=== PATIENT | male | born 1975 | race African-American/Black ===

== ENCOUNTER 2020-07-11 03:04 | Inpatient (IN) | payer BC, OTHER ==
[2020-07-11 04:08] LABS: ABSOLUTE LYMPHOCYTES (AUTO) 0.5 10^3/uL (0.5-4.7); ABSOLUTE MONOCYTES (AUTO) 0.4 10^3/uL (0.1-1.4); ABSOLUTE NEUT (AUTO) 8.7 10^3/uL (1.7-8.2); BASOPHILS % (AUTO) 0.2 % (0-2); HEMOGLOBIN 15.3 g/dL (13.5-17.0); LYMPHOCYTES % (AUTO) 5.6 % (13-45); MEAN CORPUSCULAR HEMOGLOBIN 29.2 pg (27.0-33.4); MEAN CORPUSCULAR HGB CONC 34.7 g/dL (32.0-36.0); MEAN CORPUSCULAR VOLUME 84 fl (80-97); MONOCYTES % (AUTO) 4.1 % (3-13); PLATELET COUNT 189 10^3/uL (150-450); RED BLOOD COUNT 5.23 10^6/uL (4.35-5.55); RED CELL DISTRIBUTION WIDTH 13.7 % (11.5-14.0); SEGMENTED NEUTROPHILS % (AUTO) 90.1 % (42-78); TOTAL CELLS COUNTED % (AUTO) 100 %; WHITE BLOOD COUNT 9.6 10^3/uL (4.0-10.5)
--- NOTE | 2020-07-11 04:19 | ER Document Report ---
ED General - General Chief Complaint: Shortness Of Breath Stated Complaint: CHEST PAIN,SHORTNESS OF BREATH Time Seen by Provider: 07/11/20 03:49 Information source: Patient - HPI Notes: Patient is a 44 y/o male who is +COVID-19 and presents with worsening shortness of breath. Patient states his symptoms began 1.5 weeks ago and he tested positive for COVID-19 two days ago. Patient was prescribed azithromycin and cefdinir by his PCP. He endorses worsening SOB that began tonight and has been using his albuterol inhaler more frequently. Patient reports non-productive cough, fever, chest pain, nausea, abdominal pain, diarrhea, and nasal congestion. He denies vomiting and sore throat. Patient has a hx of HTN. - Related Data Allergies/Adverse Reactions: No Known Allergies Allergy (Unverified 07/11/20 03:42) Past Medical History - General Information source: Patient - Social History Smoking Status: Never Smoker Frequency of alcohol use: Occasional Drug Abuse: None Family History: Reviewed & Not Pertinent Patient has homicidal ideation: No Review of Systems - Review of Systems Constitutional: See HPI EENT: See HPI Cardiovascular: See HPI Respiratory: See HPI Gastrointestinal: See HPI Genitourinary: No symptoms reported Male Genitourinary: No symptoms reported Musculoskeletal: No symptoms reported Skin: No symptoms reported Hematologic/Lymphatic: No symptoms reported Neurological/Psychological: No symptoms reported Physical Exam - Vital signs Vitals: Temp Pulse Resp BP Pulse Ox 100.0 F 99 16 140/85 H 90 L 07/11/20 03:19 07/11/20 03:19 07/11/20 03:19 07/11/20 03:19 07/11/20 03:19 - Notes Notes: PHYSICAL EXAMINATION: VITALS: Vitals reviewed and within normal limits. GENERAL: Obese, male in mild distress with labored respirations with exertion. HEAD: Atraumatic, normocephalic. EYES: Pupils equal round and reactive to light, extraocular movements intact, s clera anicteric, conjunctiva are normal. ENT: nares patent, oropharynx clear without exudates. Moist mucous membranes. NECK: Normal range of motion, supple without lymphadenopathy. LUNGS: Breathing becomes labored with any exertion. Rales noted to bilateral bases and right middle lobe. No accessory muscle use, no intercostal retractions. HEART: Regular rate and rhythm without murmurs. ABDOMEN: Soft, nontender, normoactive bowel sounds. No guarding, no rebound. No masses appreciated. EXTREMITIES: Normal range of motion, no pitting or edema. No cyanosis. NEUROLOGICAL: No focal neurological deficits. Moves all extremities spontaneously and on command. PSYCH: Normal mood, normal affect. SKIN: Warm, Dry, normal turgor, no rashes or lesions noted. Course - Re-evaluation Re-evalutation: Patient is a 44 y/o male, COVID-19 positive who presents for worsening SOB. Patient hypoxic on arrival with O2 Sat in the low 90s. Improved O2 saturations of 100% when placed on O2 via NC. Patient's temp 100 F upon arrival. On exam, labored respirations with exertion and rales noted bilaterally at bases and mid dle lobe. Chest x-ray shows pneumonia of the left lung base and right perihilar region. WBC normal at 9.6, and lactic normal at 1.1. VBG normal and troponin negative. Rocephin, azithromycin and dexamethasone ordered. Patient discussed with Dr. Babcock, hospitalist and he agrees to accept the patient for full admission to the [facility] COVID+ unit. - Vital Signs Vital signs: Temp Pulse Resp BP Pulse Ox 101.4 F H 99 36 H 167/81 H 97 07/11/20 06:52 07/11/20 03:19 07/11/20 06:01 07/11/20 06:01 07/11/20 06:01 - Laboratory Result Diagrams: 07/11/20 03:53 07/11/20 03:53 Laboratory results interpreted by me: 07/11/20 07/11/20 07/11/20 03:53 03:53 04:25 Lymph % (Auto) 5.6 L Absolute Neuts (auto) 8.7 H Seg Neutrophils % 90.1 H Glucose 124 H Calcium 8.3 L Urine Protein 100 H Urine Blood MODERATE H - Diagnostic Test Radiology reviewed: Image reviewed, Reports reviewed Radiology results interpreted by me: Chest X-Ray 07/11/20 03:44 IMPRESSION: Airspace opacities consistent with pneumonia as above copyright 2010 [employer]- All Rights Reserved - EKG Interpretation by Me Additional EKG results interpreted by me: Sinus rhythm with a rate of 97. QTc 432. Normal axis. No T wave inversion or ST segment changes in consecutive leads. Discharge - Discharge Clinical Impression: Shortness of breath, COVID-19 Pneumonia Qualifiers: Pneumonia type: due to unspecified organism Laterality: bilateral Lung location: unspecified part of lung Qualified Code(s): J18.9 - Pneumonia, unspecified organism Condition: Stable Disposition: ADMITTED INPATIENT Admitting Provider: Yoko (Hospitalist) Unit Admitted: IMCU - COVID+
[2020-07-11 04:24] LABS: VENOUS BLOOD BASE EXCESS 0.6 mmol/L; VENOUS BLOOD HCO3 25.8 mmol/L (20-32); VENOUS BLOOD PCO2 43.3 mmHg (35-63); VENOUS BLOOD PH 7.39 (7.30-7.42)
[2020-07-11 04:31] LABS: ALBUMIN 3.9 g/dL (3.5-5.0); ALKALINE PHOSPHATASE 41 U/L (38-126); ANION GAP 12 (5-19); ASPARTATE AMINO TRANSFERASE 35 U/L (17-59); BILIRUBIN,DIRECT 0.3 mg/dL (0.0-0.4); BILIRUBIN,TOTAL 1.1 mg/dL (0.2-1.3); BLOOD UREA NITROGEN 13 mg/dL (7-20); CALCIUM 8.3 mg/dL (8.4-10.2); CARBON DIOXIDE 26 mmol/L (22-30); CHLORIDE 101 mmol/L (98-107); GLUCOSE 124 mg/dL (75-110); POTASSIUM 3.8 mmol/L (3.6-5.0); TOTAL PROTEIN 6.9 g/dL (6.3-8.2)
[2020-07-11 04:53] LABS: APPEARANCE,URINE CLEAR; BILIRUBIN,URINE NEGATIVE (NEGATIVE); COLOR,URINE YELLOW; GLUCOSE, URINE NEGATIVE (NEGATIVE); KETONES,URINE NEGATIVE (NEGATIVE); LEUKOCYTE ESTERASE,URINE NEGATIVE (NEGATIVE); NITRITE,URINE NEGATIVE (NEGATIVE); PROTEIN,URINE 100 mg/dL (NEGATIVE); URINE SPECIFIC GRAVITY 1.017; UROBILINOGEN,URINE NEGATIVE mg/dL (<2.0)
--- NOTE | 2020-07-11 05:03 | RADIOLOGY REPORT (SQ) ---
EXAM DESCRIPTION: XR CHEST 1 VIEW COMPLETED DATE/TME: 07/11/2020 03:44 CLINICAL HISTORY: 44 years, Male, shortness of breath, chest pain COMPARISON: None. NUMBER OF VIEWS: 1 TECHNIQUE: Portable chest LIMITATIONS: None. FINDINGS: Heart size is normal. Airspace opacities of the left lung base and right perihilar region. No pneumothorax IMPRESSION: Airspace opacities consistent with pneumonia as above copyright 2010 [employer]- All Rights Reserved
[2020-07-11] MEDS ORDERED: AZITHROMYCIN INJ 500 MG VIAL IV ONE (05:57)
[2020-07-11] MEDS ORDERED: CEFTRIAXONE 1 GM/D5W RTU 1 GM/50 ML RTUPB IV ONE (05:58)
[2020-07-11] MEDS ORDERED: DEXAMETHASONE SOD PHOS INJ 10 MG/1 ML VIAL IV ONE (05:59)
[2020-07-11] MEDS ORDERED: ACETAMINOPHEN 325 MG TABLET PO ONE (07:12)
--- NOTE | 2020-07-11 07:20 | EKG REPORT ---
SEVERITY:- ABNORMAL ECG - SINUS RHYTHM LEFT ATRIAL ABNORMALITY : Confirmed by: Carmelina Peters 11-Jul-2020 07:19:23
[2020-07-11] MEDS ORDERED: ACETAMINOPHEN 325 MG TABLET PO PRN (08:19)
[2020-07-11] MEDS ORDERED: PROMETHAZINE HCL INJ 25 MG/1 ML VIAL IV PRN (08:19)
[2020-07-11 09:42] LABS: C-REACTIVE PROTEIN 239.7 mg/L (<10.0)
[2020-07-11] MEDS: DEXAMETHASONE SOD PHOSPHATE INJ 4 MG/1 ML VIAL IV SCH ×2 (10:53→21:31)
[2020-07-11] MEDS: DOCUSATE SODIUM 100 MG/10 ML UDC PO SCH (10:53)
[2020-07-11] MEDS: CHOLECALCIFEROL (D3) 400 UNIT TABLET PO SCH (10:54)
[2020-07-11] MEDS: ZINC SULFATE 220 MG CAPSULE PO SCH (10:54)
[2020-07-11] MEDS: AZITHROMYCIN 500 MG in DEXTROSE 5%-WATER 250 ML IV SCH (10:54)
[2020-07-11] MEDS: FAMOTIDINE 20 MG TABLET PO SCH ×2 (10:54→21:30)
[2020-07-11] MEDS: ASCORBIC ACID 500 MG TABLET PO SCH ×2 (10:54→18:16)
[2020-07-11] MEDS: ALBUTEROL SULFATE 0.083% NEB 2.5 MG/3 ML AMPUL NEB PRN ×2 (10:59→20:13)
[2020-07-11] MEDS ORDERED: HEPARIN SOD (PORCINE) 5,000 UNIT/ML 1 ML VIAL SUBCUT SCH (14:00)
[2020-07-11] MEDS ORDERED: PHARMACY COMMUNICATION ORDER MC NR (16:30)
[2020-07-11] MEDS ORDERED: REMDESIVIR (EUA) 200 MG in NORMAL SALINE 250 ML IV ONE (18:00)
--- NOTE | 2020-07-11 18:05 | PDOC H&P ---
History of Present Illness Admission Date/PCP: 07/11/20 06:47 Patient complains of: fever, dyspnea, COVID symptoms History of Present Illness: PAYTON RUBIO is a 44 year old male with a past medical history significant for hypertension, obesity, BRISSA who presents to the emergency department today with a complaint of 1-1/2 weeks of progressively worsening dyspnea, malaise, pleuritic chest pain with inspiration and cough, and fever. He reports that he has tested COVID positive at outside facility. Evaluation in the emergency department revealed Fever 101.4, tachypnea (RR37), hypoxia on room air, unremarkable CBC, elevated d-dimer, normal VBG, unremarkable chemistry, CRP 239, benign urinalysis. Chest x-ray demonstrated multifocal pneumonia. He was provided IV azithromycin, Rocephin, dexamethasone, and referred to the hospital service for further evaluation management of the above-stated complaints and findings. Past Medical History Cardiac Medical History: Reports: Hypertension Pulmonary Medical History: Reports: Other - BRISSA EENT Medical History: Reports: None Neurological Medical History: Reports: None Endocrine Medical History: Reports: Obesity Renal/ Medical History: Reports: None Malignancy Medical History: Reports: None GI Medical History: Reports: None Musculoskeltal Medical History: Reports: None Skin Medical History: Reports: None Psychiatric Medical History: Reports: None Traumatic Medical History: Reports: None Hematology: Reports: None Infectious Medical History: Reports: None Past Surgical History Past Surgical History: Reports: None Social History Information Source: Patient Lives with: Family Smoking Status: Never Smoker Electronic Cigarette use?: No Frequency of Alcohol Use: Rare Hx Recreational Drug Use: No Hx Prescription Drug Abuse: No - Advance Directive Resuscitation Status: Full Code Surrogate healthcare decision maker:: Patient's mother. Family History Family History: Reviewed & Not Pertinent Parental Family History Reviewed: Yes Children Family History Reviewed: Yes Sibling(s) Family History Reviewed.: Yes Medication/Allergy Allergies/Adverse Reactions: No Known Allergies Allergy (Unverified 07/11/20 03:42) Review of Systems Constitutional: PRESENT: chills, fever(s). ABSENT: headache(s), weight gain, weight loss Eyes: ABSENT: visual disturbances Ears: ABSENT: hearing changes Cardiovascular: PRESENT: other - pleuritic pain. ABSENT: chest pain, dyspnea on exertion, edema, orthropnea, palpitations Respiratory: PRESENT: cough, dyspnea. ABSENT: hemoptysis Gastrointestinal: ABSENT: abdominal pain, constipation, diarrhea, hematemesis, hematochezia, nausea, vomiting Genitourinary: ABSENT: dysuria, hematuria Musculoskeletal: ABSENT: joint swelling Integumentary: ABSENT: rash, wounds Neurological: ABSENT: abnormal gait, abnormal speech, confusion, dizziness, focal weakness, syncope Psychiatric: ABSENT: anxiety, depression, homidical ideation, suicidal ideation Endocrine: ABSENT: cold intolerance, heat intolerance, polydipsia, polyuria Hematologic/Lymphatic: ABSENT: easy bleeding, easy bruising Physical Exam Vital Signs: Temp Pulse Resp BP Pulse Ox 98.2 F 91 32 H 143/73 H 90 L 07/11/20 16:04 07/11/20 16:04 07/11/20 14:00 07/11/20 16:04 07/11/20 16:04 Intake & Output 07/10/20 07/11/20 07/12/20 06:59 06:59 06:59 Intake Total 50 Balance 50 Weight 124.6 kg General appearance: PRESENT: no acute distress, cooperative, morbidly obese, well-developed, well-nourished, other - acutely ill appearing Head exam: PRESENT: atraumatic, normocephalic Eye exam: PRESENT: conjunctiva pink, EOMI, PERRLA. ABSENT: scleral icterus Mouth exam: PRESENT: moist, tongue midline Respiratory exam: PRESENT: clear to auscultation glory, decreased breath sounds - throughout; shallow respirations, symmetrical, unlabored, other - supplemental O2 via NC. ABSENT: rales, rhonchi, wheezes Cardiovascular exam: PRESENT: RRR. ABSENT: diastolic murmur, rubs, systolic murmur Vascular exam: PRESENT: normal capillary refill Extremities exam: PRESENT: full ROM. ABSENT: calf tenderness, clubbing, pedal edema Musculoskeletal exam: PRESENT: ambulatory Neurological exam: PRESENT: alert, awake, oriented to person, oriented to place, oriented to time, oriented to situation, CN II-XII grossly intact. ABSENT: motor sensory deficit Psychiatric exam: PRESENT: appropriate affect, normal mood. ABSENT: homicidal ideation, suicidal ideation Skin exam: PRESENT: dry, intact, warm. ABSENT: cyanosis, rash Results Laboratory Results: 07/11/20 03:53 07/11/20 03:53 07/11/20 07/11/20 07/11/20 03:53 03:53 03:53 WBC 9.6 RBC 5.23 Hgb 15.3 Hct 44.0 MCV 84 MCH 29.2 MCHC 34.7 RDW 13.7 Plt Count 189 Seg Neutrophils % 90.1 H VBG pH VBG pCO2 VBG HCO3 VBG Base Excess Sodium 138.8 Potassium 3.8 Chloride 101 Carbon Dioxide 26 Anion Gap 12 BUN 13 Creatinine 1.22 Est GFR ( Amer) > 60 Glucose 124 H Lactic Acid 1.1 Calcium 8.3 L Ferritin Total Bilirubin 1.1 AST 35 Alkaline Phosphatase 41 C-Reactive Protein Total Protein 6.9 Albumin 3.9 Urine Color Urine Appearance Urine pH Ur Specific [place] Urine Protein Urine Glucose (UA) Urine Ketones Urine Blood Urine Nitrite Ur Leukocyte Esterase Urine WBC (Auto) Urine RBC (Auto) Blood Type Antibody Screen 07/11/20 07/11/20 07/11/20 03:53 04:25 08:05 WBC RBC Hgb Hct MCV MCH MCHC RDW Plt Count Seg Neutrophils % VBG pH 7.39 VBG pCO2 43.3 VBG HCO3 25.8 VBG Base Excess 0.6 Sodium Potassium Chloride Carbon Dioxide Anion Gap BUN Creatinine Est GFR ( Amer) Glucose Lactic Acid Calcium Ferritin 250.00 Total Bilirubin AST Alkaline Phosphatase C-Reactive Protein 239.7 H Total Protein Albumin Urine Color YELLOW Urine Appearance CLEAR Urine pH 6.0 Ur Specific [place] 1.017 Urine Protein 100 H Urine Glucose (UA) NEGATIVE Urine Ketones NEGATIVE Urine Blood MODERATE H Urine Nitrite NEGATIVE Ur Leukocyte Esterase NEGATIVE Urine WBC (Auto) 4 Urine RBC (Auto) 0 Blood Type Antibody Screen 07/11/20 15:20 WBC RBC Hgb Hct MCV MCH MCHC RDW Plt Count Seg Neutrophils % VBG pH VBG pCO2 VBG HCO3 VBG Base Excess Sodium Potassium Chloride Carbon Dioxide Anion Gap BUN Creatinine Est GFR ( Amer) Glucose Lactic Acid Calcium Ferritin Total Bilirubin AST Alkaline Phosphatase C-Reactive Protein Total Protein Albumin Urine Color Urine Appearance Urine pH Ur Specific [place] Urine Protein Urine Glucose (UA) Urine Ketones Urine Blood Urine Nitrite Ur Leukocyte Esterase Urine WBC (Auto) Urine RBC (Auto) Blood Type A POSITIVE Antibody Screen NEGATIVE 07/11/20 03:53 Troponin I 0.012 Impressions: Chest X-Ray 07/11/20 03:44 IMPRESSION: Airspace opacities consistent with pneumonia as above copyright 2011 [employer]- All Rights Reserved Assessment and Plan - Diagnosis (1) Pneumonia due to COVID-19 virus Is this a current diagnosis for this admission?: Yes Plan: COVID test positive (done at outside facility) D-dimer and CRP are elevated. Patient is admitted to the medical floor on continuous cardiac telemetry and pulse oximetry. Full dose Lovenox related elevated d-dimer. IV azithromycin IV Remdesivir Patient has declined convalescent serum Provide supplemental oxygen as needed maintain saturations greater than 89%. CPAP nightly and PRN As needed nebulizer treatments. Zinc, vitamin D, vitamin C, and melatonin supplementation. Analgesics and antipyretics prn Encourage pulmonary toilet. Isolation precautions. (2) Acute respiratory failure with hypoxia Is this a current diagnosis for this admission?: Yes Plan: Secondary to #1 Management as above. (3) Morbid obesity with BMI of 40.0-44.9, adult Is this a current diagnosis for this admission?: Yes Plan: BMI 40.6; concerning due to COVID (+) dx w/ acute resp failure in patient with BRISSA. Dietary discretion and lifestyle modification will be encouraged. Cardiac diet. (4) BRISSA (obstructive sleep apnea) Is this a current diagnosis for this admission?: Yes Plan: CPAP qHS and PRN - Time Time Spent with patient: 35 or more minutes Medications reviewed and adjusted accordingly: Yes Anticipated Discharge Disposition: Home, Self Care Anticipated Discharge Timeframe: >72 hrs - Inpatient Certification Based on my medical assessment, after consideration of the patient's comorbidities, presenting symptoms, or acuity I expect that the services needed warrant INPATIENT care.: Yes I certify that my determination is in accordance with my understanding of Medicare's requirements for reasonable and necessary INPATIENT services [42 CFR 412.3e].: Yes Medical Necessity: Need Close Monitoring Due to Risk of Patient Decompensation, Need For Continuous Telemetry Monitoring, Need for Nebulizer Therapy and Monitoring of Response
[2020-07-11] MEDS: NORMAL SALINE 1000 ML 1,000 ML IV PRN (18:18)
[2020-07-11] MEDS: ENOXAPARIN SODIUM INJ 150 MG/1 ML DISP.SYRIN SUBCUT SCH (21:30)
[2020-07-11] MEDS: MELATONIN 3 MG TABLET PO SCH (21:30)
[2020-07-12] MEDS: ALBUTEROL SULFATE 0.083% NEB 2.5 MG/3 ML AMPUL NEB PRN ×2 (05:18→18:40)
[2020-07-12] MEDS: NORMAL SALINE 1000 ML 1,000 ML IV PRN ×3 (05:21→19:54)
[2020-07-12 07:23] LABS: ABSOLUTE LYMPHOCYTES (AUTO) 0.7 10^3/uL (0.5-4.7); ABSOLUTE MONOCYTES (AUTO) 0.6 10^3/uL (0.1-1.4); ABSOLUTE NEUT (AUTO) 10.6 10^3/uL (1.7-8.2); BASOPHILS % (AUTO) 0.2 % (0-2); HEMATOCRIT 44.2 % (37.9-51.0); HEMOGLOBIN 15.5 g/dL (13.5-17.0); LYMPHOCYTES % (AUTO) 5.6 % (13-45); MEAN CORPUSCULAR HEMOGLOBIN 29.3 pg (27.0-33.4); MEAN CORPUSCULAR HGB CONC 35.1 g/dL (32.0-36.0); MEAN CORPUSCULAR VOLUME 83 fl (80-97); MONOCYTES % (AUTO) 4.8 % (3-13); PLATELET COUNT 209 10^3/uL (150-450); RED CELL DISTRIBUTION WIDTH 13.7 % (11.5-14.0); SEGMENTED NEUTROPHILS % (AUTO) 89.4 % (42-78); TOTAL CELLS COUNTED % (AUTO) 100 %; WHITE BLOOD COUNT 11.9 10^3/uL (4.0-10.5)
[2020-07-12 07:42] LABS: ANION GAP 13 (5-19); BLOOD UREA NITROGEN 15 mg/dL (7-20); CALCIUM 8.3 mg/dL (8.4-10.2); CARBON DIOXIDE 22 mmol/L (22-30); CHLORIDE 104 mmol/L (98-107); GLUCOSE 135 mg/dL (75-110); POTASSIUM 4.5 mmol/L (3.6-5.0)
[2020-07-12] MEDS: DOCUSATE SODIUM 100 MG/10 ML UDC PO SCH ×2 (09:52→10:45)
[2020-07-12] MEDS: LOSARTAN POTASSIUM 50 MG TABLET PO SCH (09:52)
[2020-07-12] MEDS: FAMOTIDINE 20 MG TABLET PO SCH ×2 (09:52→21:33)
[2020-07-12] MEDS: ASCORBIC ACID 500 MG TABLET PO SCH ×2 (09:52→17:14)
[2020-07-12] MEDS: CHOLECALCIFEROL (D3) 400 UNIT TABLET PO SCH (09:52)
[2020-07-12] MEDS: ZINC SULFATE 220 MG CAPSULE PO SCH (09:53)
[2020-07-12] MEDS: DEXAMETHASONE SOD PHOSPHATE INJ 4 MG/1 ML VIAL IV SCH ×2 (09:53→21:33)
[2020-07-12] MEDS ORDERED: (PENDING PHARMACY ID) (Olmesartan Medoxomil [Benicar] 40 MG) PO SCH (10:00)
[2020-07-12] MEDS ORDERED: AZITHROMYCIN 500 MG in DEXTROSE 5%-WATER 250 ML IV SCH (10:00)
[2020-07-12] MEDS: ENOXAPARIN SODIUM INJ 150 MG/1 ML DISP.SYRIN SUBCUT SCH ×3 (11:14→21:32)
[2020-07-12] MEDS: AZITHROMYCIN 500 MG in DEXTROSE 5%-WATER 250 ML IV SCH (11:14)
--- NOTE | 2020-07-12 15:48 | PDOC PROGRESS REPORT ---
Subjective Progress Note for:: 07/12/20 Subjective:: PAYTON RUBIO is a 44 year old male with a past medical history significant for hypertension, obesity, BRISSA who was admitted 07/11/2020 with COVID pneumonia. Patient was seen on afternoon rounds. He is found resting in bed, comfortably, on supplemental oxygen by nasal cannula at 6 L/min; maintaining oxygen saturations of 90 to 94%. Patient reports continued fatigue, dyspnea, occasional nonproductive cough. Reports that his pleuritic chest pain is improved today. However, he has developed diarrhea. T-max 99.2/24 hours, 101.4/48. He has no other questions or concerns at this time. No concerns per nursing. Reason For Visit: COVID (+), PNEUMONIA Physical Exam Vital Signs: Temp Pulse Resp BP Pulse Ox 97.9 F 84 20 142/71 H 92 07/12/20 11:30 07/12/20 14:00 07/12/20 11:30 07/12/20 11:30 07/12/20 11:30 Intake & Output 07/11/20 07/12/20 07/13/20 06:59 06:59 06:59 Intake Total 50 1250 730 Output Total 425 1040 Balance 50 825 -310 Weight 124.6 kg 127.2 kg General appearance: PRESENT: no acute distress, cooperative, morbidly obese, well-developed, well-nourished, other - Acutely ill-appearing Head exam: PRESENT: atraumatic, normocephalic Eye exam: PRESENT: conjunctiva pink, EOMI, PERRLA. ABSENT: scleral icterus Mouth exam: PRESENT: moist, tongue midline Respiratory exam: PRESENT: clear to auscultation glory, symmetrical, tachypnea - Shallow, other - Supplemental oxygen by nasal cannula. ABSENT: rales, rhonchi, wheezes Cardiovascular exam: PRESENT: RRR. ABSENT: diastolic murmur, rubs, systolic murmur Vascular exam: PRESENT: normal capillary refill Extremities exam: PRESENT: full ROM. ABSENT: calf tenderness, clubbing, pedal edema Musculoskeletal exam: PRESENT: ambulatory Neurological exam: PRESENT: alert, awake, oriented to person, oriented to place, oriented to time, oriented to situation, CN II-XII grossly intact. ABSENT: motor sensory deficit Psychiatric exam: PRESENT: appropriate affect, normal mood. ABSENT: homicidal ideation, suicidal ideation Skin exam: PRESENT: dry, intact, warm. ABSENT: cyanosis, rash Results Laboratory Results: 07/12/20 06:45 07/12/20 06:45 07/11/20 07/12/20 07/12/20 15:20 06:45 06:45 WBC 11.9 H RBC 5.30 Hgb 15.5 Hct 44.2 MCV 83 MCH 29.3 MCHC 35.1 RDW 13.7 Plt Count 209 Seg Neutrophils % 89.4 H Sodium 139.2 Potassium 4.5 Chloride 104 Carbon Dioxide 22 Anion Gap 13 BUN 15 Creatinine 0.83 Est GFR ( Amer) > 60 Glucose 135 H Calcium 8.3 L Blood Type A POSITIVE Antibody Screen NEGATIVE 07/12/20 04:58 Sputum Gram Stain - Final 07/12/20 04:58 Sputum Sputum Culture - Final 07/11/20 03:53 Troponin I 0.012 Impressions: Chest X-Ray 07/11/20 03:44 IMPRESSION: Airspace opacities consistent with pneumonia as above copyright 2011 [employer]- All Rights Reserved Assessment and Plan - Diagnosis (1) Pneumonia due to COVID-19 virus Is this a current diagnosis for this admission?: Yes Plan: Increased oxygen needs today; currently on 6lpm via [place] COVID test positive (done at outside facility) D-dimer and CRP are elevated. Patient is admitted to the medical floor on continuous cardiac telemetry and pulse oximetry. Full dose Lovenox related elevated d-dimer. IV azithromycin IV Remdesivir Patient has declined convalescent serum Provide supplemental oxygen as needed maintain saturations greater than 89%. CPAP nightly and PRN As needed nebulizer treatments. Zinc, vitamin D, vitamin C, and melatonin supplementation. Analgesics and antipyretics prn Encourage pulmonary toilet. Isolation precautions. Updated patient's mother (Danii [phone]), per his request, this afternoon. (2) Acute respiratory failure with hypoxia Is this a current diagnosis for this admission?: Yes Plan: Secondary to #1 Management as above. (3) Morbid obesity with BMI of 40.0-44.9, adult Is this a current diagnosis for this admission?: Yes Plan: BMI 40.6; concerning due to COVID (+) dx w/ acute resp failure in patient with BRISSA. Dietary discretion and lifestyle modification will be encouraged. Cardiac diet. (4) BRISSA (obstructive sleep apnea) Is this a current diagnosis for this admission?: Yes Plan: CPAP qHS and PRN - Time Time Spent with patient: 35 or more minutes Medications reviewed and adjusted accordingly: Yes Anticipated Discharge Disposition: Home, Self Care Anticipated Discharge Timeframe: >72 hrs
[2020-07-12] MEDS ORDERED: TEMAZEPAM 7.5 MG CAPSULE PO PRN (18:08)
[2020-07-12] MEDS: MELATONIN 3 MG TABLET PO SCH ×2 (21:33→21:44)
[2020-07-12] MEDS: REMDESIVIR (EUA) 100 MG in NORMAL SALINE 250 ML IV SCH (21:45)
[2020-07-13] MEDS: ONDANSETRON HCL INJ/PF 4 MG/2 ML SDV IV PRN ×3 (06:05→22:00)
[2020-07-13] MEDS: MORPHINE SULFATE 10 MG/ML INJ IV PRN ×3 (06:05→22:00)
[2020-07-13 06:44] LABS: HEMATOCRIT 43.7 % (37.9-51.0); HEMOGLOBIN 15.2 g/dL (13.5-17.0); MEAN CORPUSCULAR HEMOGLOBIN 29.1 pg (27.0-33.4); MEAN CORPUSCULAR HGB CONC 34.7 g/dL (32.0-36.0); MEAN CORPUSCULAR VOLUME 84 fl (80-97); PLATELET COUNT 305 10^3/uL (150-450); RED BLOOD COUNT 5.22 10^6/uL (4.35-5.55); RED CELL DISTRIBUTION WIDTH 14.2 % (11.5-14.0); WHITE BLOOD COUNT 8.8 10^3/uL (4.0-10.5)
[2020-07-13 07:14] LABS: ANION GAP 8 (5-19); BLOOD UREA NITROGEN 15 mg/dL (7-20); CALCIUM 8.3 mg/dL (8.4-10.2); CARBON DIOXIDE 25 mmol/L (22-30); CHLORIDE 106 mmol/L (98-107); GLUCOSE 128 mg/dL (75-110); POTASSIUM 4.9 mmol/L (3.6-5.0)
[2020-07-13] MEDS ORDERED: LOPERAMIDE HCL 2 MG CAPSULE PO PRN (10:39)
[2020-07-13] MEDS: DOCUSATE SODIUM 100 MG/10 ML UDC PO SCH (10:45)
--- NOTE | 2020-07-13 10:45 | PDOC PROGRESS REPORT ---
Subjective Progress Note for:: 07/13/20 Subjective:: Patient was having diarrhea last night. He had poor sleep. In addition he was having trouble with the CPAP mask. Reason For Visit: COVID (+), PNEUMONIA Physical Exam Vital Signs: Temp Pulse Resp BP Pulse Ox 98.9 F 78 30 H 128/73 H 94 07/13/20 07:57 07/13/20 07:57 07/13/20 07:57 07/13/20 07:57 07/13/20 07:57 Intake & Output 07/12/20 07/13/20 07/14/20 06:59 06:59 06:59 Intake Total 1250 2980 250 Output Total 425 3015 Balance 825 -35 250 Weight 127.2 kg 120.1 kg General appearance: PRESENT: cooperative, mild distress, morbidly obese, well- developed Head exam: PRESENT: atraumatic, normocephalic Ear exam: PRESENT: normal external ear exam. ABSENT: bleeding, drainage Mouth exam: PRESENT: moist, tongue midline Respiratory exam: PRESENT: rales - At bases, symmetrical, tachypnea. ABSENT: prolonged expiratory phas, rhonchi, wheezes Cardiovascular exam: PRESENT: RRR, +S1, +S2, systolic murmur - 2/6. ABSENT: bradycardia, diastolic murmur, irregular rhythm, tachycardia GI/Abdominal exam: PRESENT: distended, normal bowel sounds, soft, tenderness - Across the lower abdomen. ABSENT: guarding Rectal exam: PRESENT: deferred Gentrourinary exam: ABSENT: indwelling catheter Extremities exam: ABSENT: joint swelling, pedal edema Musculoskeletal exam: PRESENT: ambulatory, normal inspection. ABSENT: deformity, dislocation Neurological exam: PRESENT: alert, awake, oriented to person, oriented to place, oriented to time, oriented to situation, CN II-XII grossly intact. ABSENT: altered Psychiatric exam: PRESENT: depressed, flat affect. ABSENT: agitated, anxious Focused psych exam: ABSENT: delusional, paranoid, restlessness Skin exam: PRESENT: dry, intact, normal color, warm. ABSENT: erythema, rash Results Laboratory Results: 07/13/20 05:19 07/13/20 05:19 07/13/20 07/13/20 05:19 05:19 WBC 8.8 RBC 5.22 Hgb 15.2 Hct 43.7 MCV 84 MCH 29.1 MCHC 34.7 RDW 14.2 H Plt Count 305 Sodium 139.4 Potassium 4.9 Chloride 106 Carbon Dioxide 25 Anion Gap 8 BUN 15 Creatinine 0.90 Est GFR ( Amer) > 60 Glucose 128 H Calcium 8.3 L 07/12/20 04:58 Sputum Gram Stain - Final 07/12/20 04:58 Sputum Sputum Culture - Final 07/11/20 03:53 Troponin I 0.012 Impressions: Chest X-Ray 07/11/20 03:44 IMPRESSION: Airspace opacities consistent with pneumonia as above copyright 2011 [employer]- All Rights Reserved Assessment and Plan - Diagnosis (1) Pneumonia due to COVID-19 virus Is this a current diagnosis for this admission?: Yes Plan: Increased oxygen needs today; currently on 6lpm via [place] COVID test positive (done at outside facility) D-dimer and CRP are elevated. Patient is admitted to the medical floor on continuous cardiac telemetry and pulse oximetry. Full dose Lovenox related elevated d-dimer. IV azithromycin IV Remdesivir Patient has declined convalescent serum Provide supplemental oxygen as needed maintain saturations greater than 89%. CPAP nightly and PRN As needed nebulizer treatments. Zinc, vitamin D, vitamin C, and melatonin supplementation. Analgesics and antipyretics prn Encourage pulmonary toilet. Isolation precautions. Updated patient's mother (Danii [phone]), per his request, this afternoon. 07/13/2020-patient is on azithromycin, remdisivir, vitamin D, vitamin C, zinc and melatonin. Utilize a CPAP at night but he is having difficulties with the mask. Currently on 6 L nasal cannula. Will recheck inflammatory markers tomorrow. This should reflect improvement in his underlying disease and if the d-dimer is less than 1.0 we can decrease the Lovenox to DVT prophylaxis dose. (2) Acute respiratory failure with hypoxia Is this a current diagnosis for this admission?: Yes Plan: Secondary to #1 Management as above. (3) BRISSA (obstructive sleep apnea) Is this a current diagnosis for this admission?: Yes Plan: CPAP qHS and PRN 07/13/2020-his CPAP is at 18 and this is the setting he has at home. He reports some difficulties with the mask. If he is not wearing his CPAP he certainly will have difficulty with sleep. Continue to encourage CPAP use. (4) Morbid obesity with BMI of 40.0-44.9, adult Is this a current diagnosis for this admission?: Yes Plan: BMI 40.6; concerning due to COVID (+) dx w/ acute resp failure in patient with BRISSA. Dietary discretion and lifestyle modification will be encouraged. Cardiac diet. 2020-BMI has dropped to 39.1. Likely weight loss due to his illness. After his recovery encourage lifestyle modification as above (5) Diarrhea Qualifiers: Diarrhea type: unspecified type Qualified Code(s): R19.7 - Diarrhea, unspecified Is this a current diagnosis for this admission?: Yes Plan: 07/13/2020-the patient seems to feel that he has started since he has been on the antibiotics. I will add probiotics. I will have loperamide available if needed. (6) Hypertension Qualifiers: Hypertension type: essential hypertension Qualified Code(s): I10 - Essential (primary) hypertension Is this a current diagnosis for this admission?: Yes Plan: 07/13/2020-the patient was on Benicar at home. Continue to use losartan from the hospital formulary. Continue to monitor blood pressure. - Time Time Spent with patient: 15-24 minutes Medications reviewed and adjusted accordingly: Yes Anticipated Discharge Disposition: Home, Self Care Anticipated Discharge Timeframe: Unknown
[2020-07-13] MEDS: ASCORBIC ACID 500 MG TABLET PO SCH ×2 (11:00→17:11)
[2020-07-13] MEDS: CHOLECALCIFEROL (D3) 1,000 UNIT (25 MCG) TABLET PO SCH (11:00)
[2020-07-13] MEDS: AZITHROMYCIN 500 MG in DEXTROSE 5%-WATER 250 ML IV SCH (11:00)
[2020-07-13] MEDS: NORMAL SALINE 1000 ML 1,000 ML IV PRN (11:00)
[2020-07-13] MEDS: ZINC SULFATE 220 MG CAPSULE PO SCH (11:00)
[2020-07-13] MEDS: LOSARTAN POTASSIUM 50 MG TABLET PO SCH (11:00)
[2020-07-13] MEDS: ENOXAPARIN SODIUM INJ 150 MG/1 ML DISP.SYRIN SUBCUT SCH ×2 (11:01→22:02)
[2020-07-13] MEDS: DEXAMETHASONE SOD PHOSPHATE INJ 4 MG/1 ML VIAL IV SCH ×2 (11:05→14:42)
[2020-07-13] MEDS: FAMOTIDINE 20 MG TABLET PO SCH ×2 (11:19→22:02)
[2020-07-13] MEDS: LACTOBACILLUS ACIDOPHILUS 250 MG TAB PO SCH (17:11)
[2020-07-13] MEDS: MELATONIN 3 MG TABLET PO SCH (21:52)
[2020-07-13] MEDS: REMDESIVIR (EUA) 100 MG in NORMAL SALINE 250 ML IV SCH (22:01)
[2020-07-14] MEDS: ONDANSETRON HCL INJ/PF 4 MG/2 ML SDV IV PRN ×2 (06:04→22:03)
[2020-07-14] MEDS: NORMAL SALINE 1000 ML 1,000 ML IV PRN (06:05)
[2020-07-14 08:24] LABS: HEMATOCRIT 46.4 % (37.9-51.0); HEMOGLOBIN 15.8 g/dL (13.5-17.0); MEAN CORPUSCULAR HEMOGLOBIN 28.8 pg (27.0-33.4); MEAN CORPUSCULAR VOLUME 85 fl (80-97); PLATELET COUNT 395 10^3/uL (150-450); RED BLOOD COUNT 5.48 10^6/uL (4.35-5.55); RED CELL DISTRIBUTION WIDTH 14.2 % (11.5-14.0); WHITE BLOOD COUNT 10.6 10^3/uL (4.0-10.5)
[2020-07-14] MEDS: FAMOTIDINE 20 MG TABLET PO SCH ×2 (09:53→21:59)
[2020-07-14] MEDS: DOCUSATE SODIUM 100 MG/10 ML UDC PO SCH ×2 (09:54→10:12)
[2020-07-14] MEDS: LACTOBACILLUS ACIDOPHILUS 250 MG TAB PO SCH ×2 (09:54→17:35)
[2020-07-14] MEDS: ZINC SULFATE 220 MG CAPSULE PO SCH (09:54)
[2020-07-14] MEDS: ASCORBIC ACID 500 MG TABLET PO SCH ×2 (09:55→17:35)
[2020-07-14] MEDS: LOSARTAN POTASSIUM 50 MG TABLET PO SCH (09:55)
[2020-07-14] MEDS: CHOLECALCIFEROL (D3) 1,000 UNIT (25 MCG) TABLET PO SCH (09:55)
[2020-07-14] MEDS: ENOXAPARIN SODIUM INJ 150 MG/1 ML DISP.SYRIN SUBCUT SCH (09:58)
[2020-07-14] MEDS ORDERED: DEXAMETHASONE SOD PHOSPHATE INJ 4 MG/1 ML VIAL IV SCH (10:00)
[2020-07-14 11:06] LABS: APPEARANCE,URINE CLEAR; BILIRUBIN,URINE NEGATIVE (NEGATIVE); COLOR,URINE YELLOW; GLUCOSE, URINE NEGATIVE (NEGATIVE); KETONES,URINE NEGATIVE (NEGATIVE); LEUKOCYTE ESTERASE,URINE NEGATIVE (NEGATIVE); NITRITE,URINE NEGATIVE (NEGATIVE); PROTEIN,URINE 30 mg/dL (NEGATIVE); URINE SPECIFIC GRAVITY 1.014; UROBILINOGEN,URINE NEGATIVE mg/dL (<2.0)
[2020-07-14 11:15] LABS: ADD MANUAL MICROSCOPIC YES; WBC,URINE RARE /HPF
[2020-07-14] MEDS: AZITHROMYCIN 500 MG in DEXTROSE 5%-WATER 250 ML IV SCH (11:28)
[2020-07-14] MEDS: DEXAMETHASONE SOD PHOSPHATE INJ 4 MG/1 ML VIAL IV SCH (13:56)
--- NOTE | 2020-07-14 19:20 | PDOC PROGRESS REPORT ---
Subjective Progress Note for:: 07/14/20 Subjective:: Breathing is feeling improved. No longer having diarrhea. Reason For Visit: COVID (+), PNEUMONIA Physical Exam Vital Signs: Temp Pulse Resp BP Pulse Ox 97.9 F 69 16 119/65 95 07/14/20 17:01 07/14/20 17:01 07/14/20 17:01 07/14/20 17:01 07/14/20 17:01 Intake & Output 07/13/20 07/14/20 07/15/20 06:59 06:59 06:59 Intake Total 3980 2695 1732 Output Total 3015 2925 1250 Balance 965 -230 482 Weight 120.1 kg 123.9 kg General appearance: PRESENT: no acute distress, morbidly obese Eye exam: ABSENT: scleral icterus Mouth exam: ABSENT: dry mucosa Throat exam: ABSENT: post pharyngeal erythema Neck exam: ABSENT: JVD Respiratory exam: PRESENT: rales, rhonchi, tachypnea Cardiovascular exam: PRESENT: RRR GI/Abdominal exam: PRESENT: normal bowel sounds, soft Rectal exam: ABSENT: deferred Extremities exam: ABSENT: +1 edema Musculoskeletal exam: PRESENT: ambulatory Neurological exam: PRESENT: alert, awake Psychiatric exam: PRESENT: appropriate affect, normal mood Results Laboratory Results: 07/14/20 06:56 07/13/20 05:19 07/14/20 07/14/20 07/14/20 06:56 06:56 07:55 WBC 10.6 H RBC 5.48 Hgb 15.8 Hct 46.4 MCV 85 MCH 28.8 MCHC 34.0 RDW 14.2 H Plt Count 395 C-Reactive Protein 63.1 H Urine Color YELLOW Urine Appearance CLEAR Urine pH 6.0 Ur Specific [place] 1.014 Urine Protein 30 H Urine Glucose (UA) NEGATIVE Urine Ketones NEGATIVE Urine Blood SMALL H Urine Nitrite NEGATIVE Ur Leukocyte Esterase NEGATIVE 07/11/20 03:53 Troponin I 0.012 Impressions: Chest X-Ray 07/11/20 03:44 IMPRESSION: Airspace opacities consistent with pneumonia as above copyright 2011 [employer]- All Rights Reserved Assessment and Plan - Plan Summary Summary: Pneumonia due to COVID-19 virus Acute respiratory failure with hypoxia remains on 6lpm via NC COVID test positive (done at outside facility) D-dimer and CRP are elevated but improving IV Remdesivir declined convalescent serum Provide supplemental oxygen as needed maintain saturations greater than 89%. CPAP nightly and PRN As needed nebulizer treatments. Zinc, vitamin D, vitamin C, and melatonin supplementation. Analgesics and antipyretics prn Encourage pulmonary toilet. Isolation precautions. BRISSA (obstructive sleep apnea) CPAP qHS and PRN Morbid obesity with BMI of 40.0-44.9, adult Dietary discretion and lifestyle modification will be encouraged. Cardiac diet. essential HTN was on Benicar at home. Continue to use losartan from the hospital formulary. Continue to monitor blood pressure DVT ppx: Lovenox - Time Time Spent with patient: 35 or more minutes Anticipated Discharge Disposition: Home, Self Care Anticipated Discharge Timeframe: within 72 hours
[2020-07-14] MEDS: MELATONIN 3 MG TABLET PO SCH (21:59)
[2020-07-14] MEDS: REMDESIVIR (EUA) 100 MG in NORMAL SALINE 250 ML IV SCH (22:00)
[2020-07-14] MEDS: MORPHINE SULFATE 10 MG/ML INJ IV PRN (22:03)
[2020-07-15] MEDS: MORPHINE SULFATE 10 MG/ML INJ IV PRN (04:49)
[2020-07-15] MEDS: ONDANSETRON HCL INJ/PF 4 MG/2 ML SDV IV PRN (04:50)
[2020-07-15] MEDS: ALBUTEROL SULFATE 0.083% NEB 2.5 MG/3 ML AMPUL NEB PRN (08:43)
[2020-07-15 09:54] LABS: HEMATOCRIT 46.2 % (37.9-51.0); HEMOGLOBIN 16.1 g/dL (13.5-17.0); MEAN CORPUSCULAR HEMOGLOBIN 29.2 pg (27.0-33.4); MEAN CORPUSCULAR HGB CONC 34.9 g/dL (32.0-36.0); MEAN CORPUSCULAR VOLUME 84 fl (80-97); PLATELET COUNT 415 10^3/uL (150-450); RED BLOOD COUNT 5.51 10^6/uL (4.35-5.55); RED CELL DISTRIBUTION WIDTH 14.1 % (11.5-14.0); WHITE BLOOD COUNT 9.5 10^3/uL (4.0-10.5)
[2020-07-15] MEDS ORDERED: ENOXAPARIN SODIUM INJ 150 MG/1 ML DISP.SYRIN SUBCUT SCH (10:00)
[2020-07-15 10:13] LABS: ANION GAP 7 (5-19); BLOOD UREA NITROGEN 17 mg/dL (7-20); CALCIUM 8.8 mg/dL (8.4-10.2); CARBON DIOXIDE 26 mmol/L (22-30); CHLORIDE 105 mmol/L (98-107); GLUCOSE 99 mg/dL (75-110); POTASSIUM 4.4 mmol/L (3.6-5.0)
[2020-07-15] MEDS: CHOLECALCIFEROL (D3) 1,000 UNIT (25 MCG) TABLET PO SCH (10:14)
[2020-07-15] MEDS: ASCORBIC ACID 500 MG TABLET PO SCH ×2 (10:14→18:42)
[2020-07-15] MEDS: FAMOTIDINE 20 MG TABLET PO SCH ×2 (10:14→21:58)
[2020-07-15] MEDS: LACTOBACILLUS ACIDOPHILUS 250 MG TAB PO SCH ×2 (10:14→18:42)
[2020-07-15] MEDS: LOSARTAN POTASSIUM 50 MG TABLET PO SCH (10:14)
[2020-07-15] MEDS: ZINC SULFATE 220 MG CAPSULE PO SCH (10:15)
[2020-07-15] MEDS: ENOXAPARIN SODIUM INJ 40 MG/0.4 ML DISP.SYRIN SUBCUT SCH (10:15)
[2020-07-15 10:22] LABS: ABSOLUTE LYMPHOCYTES# (MANUAL) 2.1 10^3/uL (0.5-4.7); ABSOLUTE MONOCYTES # (MANUAL) 0.6 10^3/uL (0.1-1.4); BASOPHILS % (MANUAL) 0 % (0-2); EOSINOPHILS % (MANUAL) 0 % (0-6); LYMPHOCYTES % (MANUAL) 19 % (13-45); METAMYELOCYTES % (MANUAL) 2 % (0-1); MONOCYTES % (MANUAL) 6 % (3-13); SEGMENTED NEUTROPHILS % (MAN) 70 % (42-78); TOTAL CELLS COUNTED 100
[2020-07-15 10:24] LABS: PLATELET COMMENT ADEQUATE; RBC MORPHOLOGY COMMENT NORMO-CYTIC/CHROMIC
[2020-07-15] MEDS: DEXAMETHASONE SOD PHOSPHATE INJ 4 MG/1 ML VIAL IV SCH (14:17)
--- NOTE | 2020-07-15 18:59 | PDOC PROGRESS REPORT ---
Subjective Progress Note for:: 07/15/20 Subjective:: Feeling okay. Breathing is improving and he is down to 2.5 L O2 via NC this morning (improved from 5L yesterday). Reason For Visit: COVID (+), PNEUMONIA Physical Exam Vital Signs: Temp Pulse Resp BP Pulse Ox 97.9 F 71 17 112/68 97 07/15/20 08:08 07/15/20 14:00 07/15/20 08:08 07/15/20 08:08 07/15/20 08:43 Intake & Output 07/14/20 07/15/20 07/16/20 06:59 06:59 06:59 Intake Total 2695 2502 Output Total 2925 2530 Balance -230 -28 Weight 123.9 kg 122.9 kg General appearance: PRESENT: no acute distress Eye exam: ABSENT: scleral icterus Mouth exam: ABSENT: dry mucosa Throat exam: ABSENT: post pharyngeal erythema Neck exam: ABSENT: JVD Respiratory exam: PRESENT: unlabored. ABSENT: accessory muscle use Cardiovascular exam: PRESENT: RRR GI/Abdominal exam: PRESENT: normal bowel sounds, soft Extremities exam: ABSENT: pedal edema Musculoskeletal exam: PRESENT: ambulatory Neurological exam: PRESENT: alert, awake, oriented to person, oriented to place, oriented to time, oriented to situation Psychiatric exam: PRESENT: appropriate affect Results Laboratory Results: 07/15/20 09:14 07/15/20 09:14 07/15/20 07/15/20 09:14 09:14 WBC 9.5 RBC 5.51 Hgb 16.1 Hct 46.2 MCV 84 MCH 29.2 MCHC 34.9 RDW 14.1 H Plt Count 415 Seg Neutrophils % Not Reportable Sodium 138.4 Potassium 4.4 Chloride 105 Carbon Dioxide 26 Anion Gap 7 BUN 17 Creatinine 0.93 Est GFR ( Amer) > 60 Glucose 99 Calcium 8.8 Magnesium 2.5 H 07/11/20 03:53 Troponin I 0.012 Impressions: Chest X-Ray 07/11/20 03:44 IMPRESSION: Airspace opacities consistent with pneumonia as above copyright 2010 [employer]- All Rights Reserved Assessment and Plan - Diagnosis (1) Acute respiratory failure with hypoxia Is this a current diagnosis for this admission?: Yes (2) Morbid obesity with BMI of 40.0-44.9, adult Is this a current diagnosis for this admission?: Yes (3) BRISSA (obstructive sleep apnea) Is this a current diagnosis for this admission?: Yes (4) Pneumonia due to COVID-19 virus Is this a current diagnosis for this admission?: Yes - Plan Summary Summary: Pneumonia due to COVID-19 virus Acute respiratory failure with hypoxia remains on 2-3 lpm O2 via [place] COVID test positive (done at outside facility) D-dimer and CRP are elevated but improving IV Remdesivir + dexamethasone declined convalescent serum Provide supplemental oxygen as needed maintain saturations greater than 89%. CPAP nightly and PRN As needed nebulizer treatments. Zinc, vitamin D, vitamin C, and melatonin supplementation. Analgesics and antipyretics prn Encourage pulmonary toilet. Isolation precautions. BRISSA (obstructive sleep apnea) CPAP qHS and PRN Morbid obesity with BMI of 40.0-44.9, adult Dietary discretion and lifestyle modification will be encouraged. Cardiac diet. essential HTN was on Benicar at home. Continue to use losartan from the hospital formulary. Continue to monitor blood pressure DVT ppx: Lovenox - Time Time Spent with patient: 35 or more minutes Anticipated Discharge Disposition: Home, Self Care Anticipated Discharge Timeframe: within 48 hours
[2020-07-15] MEDS: MELATONIN 3 MG TABLET PO SCH (21:57)
[2020-07-15] MEDS: REMDESIVIR (EUA) 100 MG in NORMAL SALINE 250 ML IV SCH (21:57)
[2020-07-16 05:14] LABS: HEMATOCRIT 45.5 % (37.9-51.0); HEMOGLOBIN 16.1 g/dL (13.5-17.0); MEAN CORPUSCULAR HEMOGLOBIN 29.2 pg (27.0-33.4); MEAN CORPUSCULAR HGB CONC 35.3 g/dL (32.0-36.0); MEAN CORPUSCULAR VOLUME 83 fl (80-97); PLATELET COUNT 404 10^3/uL (150-450); RED BLOOD COUNT 5.52 10^6/uL (4.35-5.55); RED CELL DISTRIBUTION WIDTH 14.3 % (11.5-14.0)
[2020-07-16 08:55] LABS: APPEARANCE,URINE CLEAR; BILIRUBIN,URINE NEGATIVE (NEGATIVE); COLOR,URINE YELLOW; GLUCOSE, URINE NEGATIVE (NEGATIVE); KETONES,URINE NEGATIVE (NEGATIVE); LEUKOCYTE ESTERASE,URINE NEGATIVE (NEGATIVE); NITRITE,URINE NEGATIVE (NEGATIVE); PROTEIN,URINE NEGATIVE (NEGATIVE); URINE SPECIFIC GRAVITY 1.013; UROBILINOGEN,URINE NEGATIVE mg/dL (<2.0)
[2020-07-16] MEDS: LOSARTAN POTASSIUM 50 MG TABLET PO SCH (09:43)
[2020-07-16] MEDS: ENOXAPARIN SODIUM INJ 40 MG/0.4 ML DISP.SYRIN SUBCUT SCH (09:43)
[2020-07-16] MEDS: ZINC SULFATE 220 MG CAPSULE PO SCH (09:43)
[2020-07-16] MEDS: LACTOBACILLUS ACIDOPHILUS 250 MG TAB PO SCH (09:43)
[2020-07-16] MEDS: ASCORBIC ACID 500 MG TABLET PO SCH (09:43)
[2020-07-16] MEDS: FAMOTIDINE 20 MG TABLET PO SCH (09:43)
[2020-07-16] MEDS: CHOLECALCIFEROL (D3) 1,000 UNIT (25 MCG) TABLET PO SCH (09:43)
[2020-07-16] MEDS: DEXAMETHASONE SOD PHOSPHATE INJ 4 MG/1 ML VIAL IV SCH (11:16)
[2020-07-16 14:53] VITALS: BP 120/80
--- NOTE | 2020-07-16 15:33 | PDOC DISCHARGE SUMMARY ---
Impression - Admit/DC Date/PCP Admission Date/Primary Care Provider: 07/11/20 06:47 Discharge Date: 07/16/20 - Discharge Diagnosis (1) Acute respiratory failure with hypoxia Is this a current diagnosis for this admission?: Yes (2) Morbid obesity with BMI of 40.0-44.9, adult Is this a current diagnosis for this admission?: Yes (3) BRISSA (obstructive sleep apnea) Is this a current diagnosis for this admission?: Yes (4) Pneumonia due to COVID-19 virus Is this a current diagnosis for this admission?: Yes (5) Essential hypertension Is this a current diagnosis for this admission?: Yes - Assessment Summary: Acute respiratory failure with hypoxia due to COVID-19 Pneumonia: he was treated with supplemental O2, Remdesivir and dexamethasone therapy. He was successfully weaned off of O2 on 07/16 and had a normal ambulatory saturation on room air on the day of discharge. BRISSA (obstructive sleep apnea): continued CPAP. Morbid obesity with BMI of 40.0-44.9, adult: Dietary discretion and lifestyle modification encouraged. - Additional Information Resuscitation Status: Full Code Discharge Diet: Cardiac Discharge Activity: Activity As Tolerated Referrals: ULKE HANSEN MD [NO LOCAL MD] - (The office will call Mr. Rubio back for a appointment.) Home Medications: Olmesartan Medoxomil [Benicar] 40 mg PO DAILY 07/11/20 History of Present Illiness History of Present Illness: PAYTON RUBIO is a 44 year old male Physical Exam Vital Signs: Temp Pulse Resp BP Pulse Ox 97.9 F 77 17 130/70 H 95 07/16/20 13:39 07/16/20 13:39 07/16/20 13:39 07/16/20 13:39 07/16/20 13:39 Intake & Output 07/15/20 07/16/20 07/17/20 06:59 06:59 06:59 Intake Total 2502 727 240 Output Total 0419 1175 Balance -28 -448 240 Weight 122.9 kg 121.1 kg 121 kg Results Laboratory Results: WBC 9.0 10^3/uL (4.0-10.5) 07/16/20 04:38 RBC 5.52 10^6/uL (4.35-5.55) 07/16/20 04:38 Hgb 16.1 g/dL (13.5-17.0) 07/16/20 04:38 Hct 45.5 % (37.9-51.0) 07/16/20 04:38 MCV 83 fl (80-97) 07/16/20 04:38 MCH 29.2 pg (27.0-33.4) 07/16/20 04:38 MCHC 35.3 g/dL (32.0-36.0) 07/16/20 04:38 RDW 14.3 % (11.5-14.0) H 07/16/20 04:38 Plt Count 404 10^3/uL (150-450) 07/16/20 04:38 Lymph % (Auto) Not Reportable 07/15/20 09:14 [place] % (Auto) Not Reportable 07/15/20 09:14 Eos % (Auto) Not Reportable 07/15/20 09:14 Baso % (Auto) Not Reportable 07/15/20 09:14 Absolute Neuts (auto) Not Reportable 07/15/20 09:14 Absolute Lymphs (auto) Not Reportable 07/15/20 09:14 Absolute Monos (auto) Not Reportable 07/15/20 09:14 Absolute Eos (auto) Not Reportable 07/15/20 09:14 Absolute Basos (auto) Not Reportable 07/15/20 09:14 Total Counted 100 07/15/20 09:14 Seg Neutrophils % Not Reportable 07/15/20 09:14 Seg Neuts % (Manual) 70 % (42-78) 07/15/20 09:14 Lymphocytes % (Manual) 19 % (13-45) 07/15/20 09:14 Atypical Lymphs % 3 % (0) 07/15/20 09:14 Monocytes % (Manual) 6 % (3-13) 07/15/20 09:14 Eosinophils % (Manual) 0 % (0-6) 07/15/20 09:14 Basophils % (Manual) 0 % (0-2) 07/15/20 09:14 Metamyelocytes % 2 % (0-1) H 07/15/20 09:14 Abs Neuts (Manual) 6.8 10^3/uL (1.7-8.2) 07/15/20 09:14 Abs Lymphs (Manual) 2.1 10^3/uL (0.5-4.7) 07/15/20 09:14 Abs Monocytes (Manual) 0.6 10^3/uL (0.1-1.4) 07/15/20 09:14 Absolute Eos (Manual) 0.0 10^3/uL (0.0-0.6) 07/15/20 09:14 Abs Basophils (Manual) 0.0 10^3/uL (0.0-0.2) 07/15/20 09:14 Platelet Comment ADEQUATE 07/15/20 09:14 RBC Morph Comment NORMO-CYTIC/CHROMIC 07/15/20 09:14 D-Dimer 0.61 ug/mL (0.00-0.50) H 07/14/20 06:56 VBG pH 7.39 (7.30-7.42) 07/11/20 03:53 VBG pCO2 43.3 mmHg (35-63) 07/11/20 03:53 VBG HCO3 25.8 mmol/L (20-32) 07/11/20 03:53 VBG Base Excess 0.6 mmol/L 07/11/20 03:53 Sodium 138.4 mmol/L (137-145) 07/15/20 09:14 Potassium 4.4 mmol/L (3.6-5.0) 07/15/20 09:14 Chloride 105 mmol/L (98-107) 07/15/20 09:14 Carbon Dioxide 26 mmol/L (22-30) 07/15/20 09:14 Anion Gap 7 (5-19) 07/15/20 09:14 BUN 17 mg/dL (7-20) 07/15/20 09:14 Creatinine 0.93 mg/dL (0.52-1.25) 07/15/20 09:14 Est GFR ( Amer) > 60 (>60) 07/15/20 09:14 Est GFR (MDRD) Non-Af > 60 (>60) 07/15/20 09:14 Glucose 99 mg/dL (75-110) 07/15/20 09:14 Lactic Acid 1.1 mmol/L (0.7-2.1) 07/11/20 03:53 Calcium 8.8 mg/dL (8.4-10.2) 07/15/20 09:14 Magnesium 2.5 mg/dL (1.6-2.3) H 07/15/20 09:14 Ferritin 250.00 ng/mL (17.9-464.0) 07/11/20 08:05 Total Bilirubin 1.1 mg/dL (0.2-1.3) 07/11/20 03:53 Direct Bilirubin 0.3 mg/dL (0.0-0.4) 07/11/20 03:53 Neonat Total Bilirubin Not Reportable 07/11/20 03:53 Neonat Direct Bilirubin Not Reportable 07/11/20 03:53 Neonat Indirect Bili Not Reportable 07/11/20 03:53 AST 35 U/L (17-59) 07/11/20 03:53 ALT 21 U/L (<50) 07/11/20 03:53 Alkaline Phosphatase 41 U/L (38-126) 07/11/20 03:53 Lactate Dehydrogenase 229 U/L (120-246) 07/11/20 08:05 Troponin I 0.012 ng/mL 07/11/20 03:53 C-Reactive Protein 63.1 mg/L (<10.0) H 07/14/20 06:56 Total Protein 6.9 g/dL (6.3-8.2) 07/11/20 03:53 Albumin 3.9 g/dL (3.5-5.0) 07/11/20 03:53 Urine Color YELLOW 07/16/20 08:11 Urine Appearance CLEAR 07/16/20 08:11 Urine pH 6.0 (5.0-9.0) 07/16/20 08:11 Ur Specific [place] 1.013 07/16/20 08:11 Urine Protein NEGATIVE mg/dL (NEGATIVE) 07/16/20 08:11 Urine Glucose (UA) NEGATIVE mg/dL (NEGATIVE) 07/16/20 08:11 Urine Ketones NEGATIVE mg/dL (NEGATIVE) 07/16/20 08:11 Urine Blood NEGATIVE (NEGATIVE) 07/16/20 08:11 Urine Nitrite NEGATIVE (NEGATIVE) 07/16/20 08:11 Urine Bilirubin NEGATIVE (NEGATIVE) 07/16/20 08:11 Urine Urobilinogen NEGATIVE mg/dL (<2.0) 07/16/20 08:11 Ur Leukocyte Esterase NEGATIVE (NEGATIVE) 07/16/20 08:11 Urine WBC (Auto) 0 /HPF 07/16/20 08:11 Urine RBC (Auto) 0 /HPF 07/11/20 04:25 Urine Bacteria (Auto) TRACE /HPF 07/11/20 04:25 Urine RBC 1-5 /HPF 07/14/20 07:55 Urine WBC RARE /HPF 07/14/20 07:55 Urine Mucus TRACE 07/14/20 07:55 Urine Mucus (Auto) RARE /LPF 07/16/20 08:11 Urine Ascorbic Acid NEGATIVE (NEGATIVE) 07/16/20 08:11 Blood Type A POSITIVE 07/11/20 15:20 Antibody Screen NEGATIVE 07/11/20 15:20 07/11/20 03:53 Troponin I 0.012 Impressions: Chest X-Ray 07/11/20 03:44 IMPRESSION: Airspace opacities consistent with pneumonia as above copyright 2010 [employer]- All Rights Reserved Stroke Is this a Stroke Patient?: No Acute Heart Failure Is this a Heart Failure Patient?: No
== END 2020-07-16 14:38 | disposition home or self-care (01) | DRG 177 ==
LOC: ER 03:04 → EH 06:47 → 3N 15:12
PROVIDERS: ADMIT Emergency Medicine; ATTEND Hospitalist
PROC: 5A09457 Assistance with Respiratory Ventilation, 24-96 Consecutive Hours, Continuous Positive Airway Pressure (ICD-10-PCS; principal; 2020-07-11)
PROC: XW033E5 Introduction of Remdesivir Anti-infective into Peripheral Vein, Percutaneous Approach, New Technology Group 5 (ICD-10-PCS; 2020-07-11)
DX: U07.1 COVID-19 (principal); J12.89 Other viral pneumonia; J96.01 Acute respiratory failure with hypoxia; Z68.41 Body mass index [BMI] 40.0-44.9, adult; E66.01 Morbid (severe) obesity due to excess calories; G47.33 Obstructive sleep apnea (adult) (pediatric); I10 Essential (primary) hypertension; R19.7 Diarrhea, unspecified
CPT/HCPCS: 36415; 71045; 80048; 80053; 81001; 82728; 82803; 83605; 83615; 83735; 84484; 85025; 85027; 85379; 86140; 86850; 86900; 86901; 87040; 87205; 93005; 93010; 94640; 94660; 94799; 96365; 96375; 99285; J0456; J0696; J1100; J1650; J2270; J2405; J3490; J7030; J7050; J7060; J7613